=== PATIENT | female | born 1955 | race Caucasian/White ===

== ENCOUNTER 2022-05-10 10:46 | Outpatient (CLI) | payer MEDICARE, SELFPAY ==
--- NOTE | ~2022-05-10 | US_ITS ---
EXAMINATION: US retroperitoneal comp DATE: 05/10/2022 12:02 INDICATION: Urinary tract infection TECHNIQUE: Multiple grayscale and Doppler ultrasound images of the kidneys were obtained. COMPARISON: None. FINDINGS: The right kidney measures 11.6 x 5.8 x 6.6 cm. The left kidney measures 9.2 x 4.8 x 5.9 cm. There appears to be a 3 mm nonobstructing stone in the lower pole.. The kidneys demonstrate normal p arenchymal echogenicity. There is mild left hydronephrosis.. The bladder is normal. Prevoid bladder v olume is 534 cc. Postvoid bladder volume is 32 cc. Bilateral jets are visualized. IMPRESSION: 1. Mild left hydronephrosis. 2. 3 mm nonobstructing stone of the left kidney. Reviewed, dictated and finalized at location B.
== END 2022-05-10 10:47 | disposition home or self-care (01) ==
LOC: ANHIMG 10:51
PROVIDERS: Visit Provider Nurse Practitioner
DX: N39.0 Urinary tract infection, site not specified (principal); N20.0 Calculus of kidney
CPT/HCPCS: 76770